=== PATIENT | female | born 1945 | race Caucasian/White ===

== ENCOUNTER 2021-11-14 22:53 | Inpatient (IN) ==
[2021-11-14] MEDS ORDERED: ONDANSETRON 4 MG/2 ML VIAL IV STA (23:58)
[2021-11-15 00:31] LABS: Albumin 3.1 G/DL (3.4-5.0); Bilirubin,Total 2.4 MG/DL (0.20-1.00); Calcium 9.5 MG/DL (8.5-10.1); Osmolality,Calculated 274.8 MOS/KG (273-304); Potassium 3.9 MMOL/L (3.5-5.1); Total Protein 6.4 G/DL (6.4-8.2)
[2021-11-15 00:56] LABS: Basophils % 0.1 % (0.0-0.8); Hematocrit 45.1 VOL% (35.7-47.0); Hemoglobin 14.3 GM/DL (12.0-16.0); Immature Granulocytes Absolute 0.24 #; Lymphocytes # 0.6 10*3/uL (1.4-4.0); Lymphocytes % 2.3 % (21.3-54.2); Mean Corpuscular HGB Conc 31.7 GM/DL (32-36); Mean Corpuscular Volume 94.5 FL (87-102); Mean Platelet Volume 11.1 FL (9.6-12.0); Monocytes % 9.1 % (1.7-12.7); Neutrophils % 87.5 % (38.7-73.9); Red Blood Count 4.77 MC/CUMM (3.8-5.5); Red Cell Distribution Width 13.6 % (9.3-17.3)
[2021-11-15 00:57] LABS: Platelet Count 61 T/CUMM (130-400); White Blood Count 24.3 T/CUMM (4-12)
[2021-11-15] MEDS ORDERED: PIPERACILLIN/TAZOBACTAM 3,375 MG in SODIUM CHLORIDE 0.9% 100 ML IV STA (01:02)
[2021-11-15 02:11] LABS: Bilirubin,Urine Negative (Negative); Blood, Urine Negative (Negative); Glucose,Urine (UA) Negative (Negative); Ketones,Urine 5 mg/dL (Negative); Mucus,Urine Occasional /LPF (Occasional); Nitrite,Urine Negative (Negative); Protein,Urine Negative; RBC,Urine 1 /HPF (0-4); Squamous Epithelial Cell,Urine Occasional /HPF (0-10); Urine Appearance CLEAR (Clear); Urine Color Amber (Yellow); Urine Specific Gravity 1.017 (1.001-1.035)
[2021-11-15 02:59] LABS: Band Neutrophils 4 % (0-10); Lymphocytes 3 % (20-55); Metamyelocytes 1 %; Segmented Neutrophils 82 % (50-85)
[2021-11-15 03:01] LABS: Howell-Jolly Bodies Few; Platelet Estimate Decreased; Total Cells Counted 100
[2021-11-15] MEDS ORDERED: GLUCAGON 1 MG VIAL IM PRN (03:55)
[2021-11-15] MEDS ORDERED: hydrALAZINE 20 MG/1 ML VIAL IV PRN (03:55)
[2021-11-15] MEDS ORDERED: MORPHINE 2 MG/1 ML SYRINGE IV PRN (03:55)
[2021-11-15] MEDS ORDERED: DEXTROSE 50% 25 GM/50 ML SYRINGE IV PRN (03:55)
[2021-11-15] MEDS ORDERED: ONDANSETRON 4 MG/2 ML VIAL IV PRN (03:55)
[2021-11-15 06:12] LABS: INR 1.1; PT Patient Result 12.7 SECS (10.5-12.0); Partial Thromboplastin Time 28.8 SECS (23.8-32.1)
[2021-11-15 06:22] LABS: Bilirubin,Direct 0.36 MG/DL (0.0-0.20); Bilirubin,Indirect 2.4 MG/DL (0.0-1.0); Bilirubin,Total 2.8 MG/DL (0.20-1.00)
[2021-11-15 06:23] LABS: Albumin 2.8 G/DL (3.4-5.0); Bilirubin,Total 2.9 MG/DL (0.20-1.00); Calcium 9.5 MG/DL (8.5-10.1); Osmolality,Calculated 270.2 MOS/KG (273-304); Potassium 4.8 MMOL/L (3.5-5.1); Total Protein 6.2 G/DL (6.4-8.2)
[2021-11-15] MEDS ORDERED: ENOXAPARIN 40 MG/0.4 ML SYRINGE SUBCUT SCH (09:00)
[2021-11-15] MEDS: AZITHROMYCIN INJ 500 MG in SODIUM CHLORIDE 0.9% 250 ML IV SCH (09:52)
[2021-11-15] MEDS: PANTOPRAZOLE 40 MG TABLET PO SCH (09:52)
[2021-11-15] MEDS: PIPERACILLIN/TAZOBACTAM 3,375 MG in SODIUM CHLORIDE 0.9% 100 ML IV SCH ×2 (11:53→17:16)
[2021-11-15] MEDS: methylPREDNISolone SOD SUC 40 MG/1 ML VIAL IV SCH ×2 (11:53→20:07)
[2021-11-15 15:44] LABS: ABG Base Excess 4.2 MMOL/L (-2.5-2.5); ABG HCO3 27.8 MMOL/L (20-26); ABG Oxygen Saturation 82.4 % (95-100); ABG PCO2 54.9 MM HG (35-48); ABG PH 7.363 (7.35-7.45); ABG PO2 49.5 MM HG (80-95); ABG TCO2 27.3 MMOL/L (23-27); Allen Test Positive
[2021-11-15] MEDS: ALBUTEROL/IPRATROPIUM 3 ML NEB RESP TX SCH ×2 (15:58→20:02)
[2021-11-15] MEDS ORDERED: DIGOXIN 0.5 MG/2 ML AMP IV ONE ×2 (16:22→16:45)
[2021-11-15 17:09] LABS: Bilirubin,Urine Negative (Negative); Blood, Urine Negative (Negative); Glucose,Urine (UA) Negative (Negative); Ketones,Urine 5 mg/dL (Negative); Mucus,Urine Occasional /LPF (Occasional); Nitrite,Urine Negative (Negative); Protein,Urine Negative; RBC,Urine 1 /HPF (0-4); Squamous Epithelial Cell,Urine Occasional /HPF (0-10); Urine Appearance CLEAR (Clear); Urine Color Amber (Yellow); Urine Specific Gravity 1.023 (1.001-1.035)
[2021-11-15] MEDS: SODIUM CHLORIDE 0.9% 1,000 ML IV SCH (17:16)
[2021-11-15] MEDS: BUDESONIDE 0.5 MG/2 ML NEB RESP TX SCH (20:02)
[2021-11-15] MEDS: ENOXAPARIN 40 MG/0.4 ML SYRINGE SUBCUT SCH (21:02)
[2021-11-16] MEDS: PIPERACILLIN/TAZOBACTAM 3,375 MG in SODIUM CHLORIDE 0.9% 100 ML IV SCH ×3 (00:25→16:29)
[2021-11-16] MEDS: methylPREDNISolone SOD SUC 40 MG/1 ML VIAL IV SCH ×3 (03:05→20:27)
[2021-11-16 04:27] LABS: Basophils % 0.1 % (0.0-0.8); Hematocrit 40.2 VOL% (35.7-47.0); Hemoglobin 12.7 GM/DL (12.0-16.0); Lymphocytes # 0.4 10*3/uL (1.4-4.0); Lymphocytes % 1.4 % (21.3-54.2); Mean Corpuscular HGB Conc 31.6 GM/DL (32-36); Mean Corpuscular Volume 96.2 FL (87-102); Mean Platelet Volume 9.9 FL (9.6-12.0); Monocytes % 1.8 % (1.7-12.7); Neutrophils % 95.4 % (38.7-73.9); Platelet Count 156 T/CUMM (130-400); Red Blood Count 4.18 MC/CUMM (3.8-5.5); Red Cell Distribution Width 13.6 % (9.3-17.3); White Blood Count 26.3 T/CUMM (4-12)
[2021-11-16 04:48] LABS: Lymphocytes 2 % (20-55); Platelet Estimate Adequate; Segmented Neutrophils 96 % (50-85)
[2021-11-16 05:00] LABS: Calcium 8.7 MG/DL (8.5-10.1); Potassium 3.9 MMOL/L (3.5-5.1)
[2021-11-16 05:12] LABS: ABG Base Excess 2.6 MMOL/L (-2.5-2.5); ABG Oxygen Saturation 97.2 % (95-100); ABG PCO2 51.9 MM HG (35-48); ABG PH 7.365 (7.35-7.45); ABG PO2 97.6 MM HG (80-95); ABG TCO2 30.6 MMOL/L (23-27)
[2021-11-16] MEDS: SODIUM CHLORIDE 0.9% 1,000 ML IV SCH ×3 (07:16→15:34)
[2021-11-16] MEDS: ACETYLCYSTEINE 20% 800 MG/4 ML VIAL RESP TX SCH ×3 (07:28→13:47)
[2021-11-16] MEDS: ALBUTEROL/IPRATROPIUM 3 ML NEB RESP TX SCH ×5 (07:28→20:07)
[2021-11-16] MEDS: BUDESONIDE 0.5 MG/2 ML NEB RESP TX SCH ×2 (07:28→20:07)
[2021-11-16] MEDS: PANTOPRAZOLE 40 MG TABLET PO SCH (08:36)
[2021-11-16] MEDS: AZITHROMYCIN INJ 500 MG in SODIUM CHLORIDE 0.9% 250 ML IV SCH (08:48)
[2021-11-16 09:51] LABS: Ferritin 346.5 ng/mL (8-252)
[2021-11-16] MEDS: OXYBUTYNIN 5 MG TABLET PO SCH (20:27)
[2021-11-16] MEDS: ATORVASTATIN 10 MG TABLET PO SCH (20:27)
[2021-11-16] MEDS: ENOXAPARIN 40 MG/0.4 ML SYRINGE SUBCUT SCH (20:27)
[2021-11-17] MEDS: PIPERACILLIN/TAZOBACTAM 3,375 MG in SODIUM CHLORIDE 0.9% 100 ML IV SCH ×3 (00:26→16:31)
[2021-11-17] MEDS: ACETYLCYSTEINE 20% 800 MG/4 ML VIAL RESP TX SCH ×3 (00:32→13:49)
[2021-11-17] MEDS: ALBUTEROL/IPRATROPIUM 3 ML NEB RESP TX SCH ×4 (00:32→20:07)
[2021-11-17] MEDS: methylPREDNISolone SOD SUC 40 MG/1 ML VIAL IV SCH ×3 (03:32→21:02)
[2021-11-17 05:27] LABS: Basophils % 0.1 % (0.0-0.8); Hematocrit 37.3 VOL% (35.7-47.0); Hemoglobin 11.9 GM/DL (12.0-16.0); Lymphocytes # 0.2 10*3/uL (1.4-4.0); Lymphocytes % 1.1 % (21.3-54.2); Mean Corpuscular HGB Conc 31.9 GM/DL (32-36); Mean Corpuscular Volume 95.6 FL (87-102); Monocytes % 2.6 % (1.7-12.7); Neutrophils % 95.1 % (38.7-73.9); Platelet Count 175 T/CUMM (130-400); Red Cell Distribution Width 13.5 % (9.3-17.3); White Blood Count 21.6 T/CUMM (4-12)
[2021-11-17 05:44] LABS: Calcium 8.4 MG/DL (8.5-10.1); Osmolality,Calculated 282.8 MOS/KG (273-304); Potassium 4.2 MMOL/L (3.5-5.1)
[2021-11-17 05:50] LABS: Hypochromia Slight; Microcytosis Slight; Platelet Estimate Adequate; Segmented Neutrophils 98 % (50-85)
[2021-11-17] MEDS: BUDESONIDE 0.5 MG/2 ML NEB RESP TX SCH ×2 (07:24→20:07)
[2021-11-17] MEDS: LOSARTAN 50 MG TABLET PO SCH (08:16)
[2021-11-17] MEDS: OXYBUTYNIN 5 MG TABLET PO SCH ×2 (08:16→21:02)
[2021-11-17] MEDS: DILTIAZEM CD 180 MG CAPSULE PO SCH (08:16)
[2021-11-17] MEDS: PANTOPRAZOLE 40 MG TABLET PO SCH (08:16)
[2021-11-17] MEDS: MONTELUKAST 10 MG TABLET PO SCH (08:16)
[2021-11-17] MEDS: SODIUM CHLORIDE 0.9% 1,000 ML IV SCH ×2 (08:16→11:11)
[2021-11-17] MEDS: AZITHROMYCIN INJ 500 MG in SODIUM CHLORIDE 0.9% 250 ML IV SCH (10:35)
[2021-11-17] MEDS: VANCOMYCIN INJ 1,000 MG in SODIUM CHLORIDE 0.9% 250 ML IV SCH (11:58)
[2021-11-17] MEDS: ATORVASTATIN 10 MG TABLET PO SCH (21:02)
[2021-11-17] MEDS: ENOXAPARIN 40 MG/0.4 ML SYRINGE SUBCUT SCH (21:03)
[2021-11-18] MEDS: VANCOMYCIN INJ 1,000 MG in SODIUM CHLORIDE 0.9% 250 ML IV SCH ×2 (00:33→12:05)
[2021-11-18] MEDS: SODIUM CHLORIDE 0.9% 1,000 ML IV SCH (00:33)
[2021-11-18] MEDS: ACETYLCYSTEINE 20% 800 MG/4 ML VIAL RESP TX SCH ×3 (00:42→15:05)
[2021-11-18] MEDS: ALBUTEROL/IPRATROPIUM 3 ML NEB RESP TX SCH ×4 (00:42→20:40)
[2021-11-18] MEDS: PIPERACILLIN/TAZOBACTAM 3,375 MG in SODIUM CHLORIDE 0.9% 100 ML IV SCH ×3 (01:52→16:40)
[2021-11-18] MEDS: methylPREDNISolone SOD SUC 40 MG/1 ML VIAL IV SCH ×3 (04:13→21:18)
[2021-11-18 05:12] LABS: Basophils % 0.1 % (0.0-0.8); Hematocrit 37.2 VOL% (35.7-47.0); Hemoglobin 11.5 GM/DL (12.0-16.0); Lymphocytes # 0.5 10*3/uL (1.4-4.0); Lymphocytes % 2.8 % (21.3-54.2); Mean Corpuscular HGB Conc 30.9 GM/DL (32-36); Mean Corpuscular Volume 96.6 FL (87-102); Monocytes % 7.8 % (1.7-12.7); Neutrophils % 87.9 % (38.7-73.9); Platelet Count 157 T/CUMM (130-400); Red Blood Count 3.85 MC/CUMM (3.8-5.5); Red Cell Distribution Width 13.5 % (9.3-17.3); White Blood Count 18.3 T/CUMM (4-12)
[2021-11-18 05:35] LABS: Lymphocytes 3 % (20-55); Platelet Estimate Adequate; Segmented Neutrophils 94 % (50-85)
[2021-11-18 05:36] LABS: Hypochromia 1+; Microcytosis 1+
[2021-11-18 05:38] LABS: Calcium 8.6 MG/DL (8.5-10.1); Osmolality,Calculated 291.1 MOS/KG (273-304); Potassium 3.8 MMOL/L (3.5-5.1)
[2021-11-18] MEDS: BUDESONIDE 0.5 MG/2 ML NEB RESP TX SCH ×2 (07:56→20:40)
[2021-11-18] MEDS: LOSARTAN 50 MG TABLET PO SCH (08:40)
[2021-11-18] MEDS: OXYBUTYNIN 5 MG TABLET PO SCH ×2 (08:40→21:18)
[2021-11-18] MEDS: PANTOPRAZOLE 40 MG TABLET PO SCH (08:40)
[2021-11-18] MEDS: MONTELUKAST 10 MG TABLET PO SCH (08:40)
[2021-11-18] MEDS: DILTIAZEM CD 180 MG CAPSULE PO SCH (08:40)
[2021-11-18] MEDS: AZITHROMYCIN INJ 500 MG in SODIUM CHLORIDE 0.9% 250 ML IV SCH (10:40)
[2021-11-18] MEDS: ATORVASTATIN 10 MG TABLET PO SCH (21:18)
[2021-11-18] MEDS: ENOXAPARIN 40 MG/0.4 ML SYRINGE SUBCUT SCH (21:19)
[2021-11-19] MEDS: VANCOMYCIN INJ 1,000 MG in SODIUM CHLORIDE 0.9% 250 ML IV SCH ×2 (00:39→13:35)
[2021-11-19] MEDS: ALBUTEROL/IPRATROPIUM 3 ML NEB RESP TX SCH ×4 (00:45→20:25)
[2021-11-19] MEDS: ACETYLCYSTEINE 20% 800 MG/4 ML VIAL RESP TX SCH ×3 (00:45→18:13)
[2021-11-19] MEDS: PIPERACILLIN/TAZOBACTAM 3,375 MG in SODIUM CHLORIDE 0.9% 100 ML IV SCH ×3 (01:40→18:24)
[2021-11-19] MEDS: methylPREDNISolone SOD SUC 40 MG/1 ML VIAL IV SCH ×3 (04:35→22:31)
[2021-11-19 05:30] LABS: Basophils % 0.1 % (0.0-0.8); Hematocrit 37.9 VOL% (35.7-47.0); Hemoglobin 11.8 GM/DL (12.0-16.0); Immature Granulocytes % 2.8 %; Immature Granulocytes Absolute 0.41 #; Lymphocytes # 0.3 10*3/uL (1.4-4.0); Lymphocytes % 2.2 % (21.3-54.2); Mean Corpuscular HGB Conc 31.1 GM/DL (32-36); Mean Corpuscular Volume 96.7 FL (87-102); Mean Platelet Volume 9.9 FL (9.6-12.0); Monocytes % 3.4 % (1.7-12.7); Neutrophils % 91.5 % (38.7-73.9); Platelet Count 156 T/CUMM (130-400); Red Blood Count 3.92 MC/CUMM (3.8-5.5); Red Cell Distribution Width 13.7 % (9.3-17.3); White Blood Count 14.8 T/CUMM (4-12)
[2021-11-19 05:44] LABS: Calcium 8.7 MG/DL (8.5-10.1); Osmolality,Calculated 295.6 MOS/KG (273-304)
[2021-11-19 05:54] LABS: Anisocytosis Slight; Band Neutrophils 7 % (0-10); Lymphocytes 6 % (20-55); Macrocytosis 1+; Metamyelocytes 2 %; Platelet Estimate Normal; Segmented Neutrophils 84 % (50-85); Total Cells Counted 100
[2021-11-19] MEDS: BUDESONIDE 0.5 MG/2 ML NEB RESP TX SCH ×2 (07:40→20:25)
[2021-11-19] MEDS: OXYBUTYNIN 5 MG TABLET PO SCH ×2 (09:21→22:31)
[2021-11-19] MEDS: PANTOPRAZOLE 40 MG TABLET PO SCH (09:21)
[2021-11-19] MEDS: LOSARTAN 50 MG TABLET PO SCH (09:21)
[2021-11-19] MEDS: MONTELUKAST 10 MG TABLET PO SCH (09:21)
[2021-11-19] MEDS: DILTIAZEM CD 180 MG CAPSULE PO SCH (09:21)
[2021-11-19] MEDS ORDERED: FUROSEMIDE 40 MG/4 ML VIAL IV ONE (12:19)
[2021-11-19] MEDS: SODIUM CHLORIDE 0.9% 1,000 ML IV SCH ×2 (18:23→18:25)
[2021-11-19] MEDS: FLUCONAZOLE 100 MG TABLET PO SCH (18:24)
[2021-11-19] MEDS: ATORVASTATIN 10 MG TABLET PO SCH (22:31)
[2021-11-19] MEDS: ENOXAPARIN 40 MG/0.4 ML SYRINGE SUBCUT SCH (22:32)
[2021-11-20] MEDS: ACETYLCYSTEINE 20% 800 MG/4 ML VIAL RESP TX SCH ×3 (00:40→13:27)
[2021-11-20] MEDS: ALBUTEROL/IPRATROPIUM 3 ML NEB RESP TX SCH ×4 (00:40→20:21)
[2021-11-20] MEDS: VANCOMYCIN INJ 1,000 MG in SODIUM CHLORIDE 0.9% 250 ML IV SCH ×3 (01:22→23:22)
[2021-11-20] MEDS: PIPERACILLIN/TAZOBACTAM 3,375 MG in SODIUM CHLORIDE 0.9% 100 ML IV SCH ×3 (06:09→18:15)
[2021-11-20] MEDS: methylPREDNISolone SOD SUC 40 MG/1 ML VIAL IV SCH ×2 (06:09→18:14)
[2021-11-20] MEDS: BUDESONIDE 0.5 MG/2 ML NEB RESP TX SCH ×2 (07:22→20:21)
[2021-11-20 09:36] LABS: Basophils % 0.2 % (0.0-0.8); Hematocrit 39.9 VOL% (35.7-47.0); Hemoglobin 12.6 GM/DL (12.0-16.0); Immature Granulocytes % 4.7 %; Immature Granulocytes Absolute 0.61 #; Lymphocytes # 0.5 10*3/uL (1.4-4.0); Lymphocytes % 3.5 % (21.3-54.2); Mean Corpuscular HGB Conc 31.6 GM/DL (32-36); Mean Corpuscular Volume 95.7 FL (87-102); Mean Platelet Volume 9.8 FL (9.6-12.0); Monocytes % 3.7 % (1.7-12.7); Neutrophils % 87.9 % (38.7-73.9); Platelet Count 183 T/CUMM (130-400); Red Blood Count 4.17 MC/CUMM (3.8-5.5); Red Cell Distribution Width 13.7 % (9.3-17.3)
[2021-11-20 09:49] LABS: Calcium 8.7 MG/DL (8.5-10.1); Osmolality,Calculated 297.7 MOS/KG (273-304); Potassium 3.6 MMOL/L (3.5-5.1)
[2021-11-20 09:58] LABS: Band Neutrophils 3 % (0-10); Lymphocytes 9 % (20-55); Segmented Neutrophils 82 % (50-85); Total Cells Counted 100
[2021-11-20 09:59] LABS: Anisocytosis 1+; Macrocytosis Slight; Platelet Estimate Normal
[2021-11-20] MEDS: PANTOPRAZOLE 40 MG TABLET PO SCH (10:19)
[2021-11-20] MEDS: LOSARTAN 50 MG TABLET PO SCH (10:19)
[2021-11-20] MEDS: MONTELUKAST 10 MG TABLET PO SCH (10:19)
[2021-11-20] MEDS: OXYBUTYNIN 5 MG TABLET PO SCH ×2 (10:19→21:00)
[2021-11-20] MEDS: DILTIAZEM CD 180 MG CAPSULE PO SCH (10:19)
[2021-11-20] MEDS: FLUCONAZOLE 100 MG TABLET PO SCH (10:19)
[2021-11-20] MEDS ORDERED: FUROSEMIDE 100 MG/10 ML VIAL IV ONE (11:00)
[2021-11-20] MEDS ORDERED: POTASSIUM BICARB EFFERVESCENT 20 MEQ TAB.EFF PO ONE (11:00)
[2021-11-20] MEDS: SODIUM CHLORIDE 0.9% 1,000 ML IV SCH (14:21)
[2021-11-20] MEDS ORDERED: POTASSIUM CHLORIDE 20 MEQ PACK PO ONE (19:49)
[2021-11-20] MEDS: ATORVASTATIN 10 MG TABLET PO SCH (21:00)
[2021-11-20] MEDS: ENOXAPARIN 40 MG/0.4 ML SYRINGE SUBCUT SCH (21:00)
[2021-11-20] MEDS: ACETAMINOPHEN 325 MG TABLET PO PRN (21:00)
[2021-11-21] MEDS: ALBUTEROL/IPRATROPIUM 3 ML NEB RESP TX SCH ×4 (01:13→20:35)
[2021-11-21] MEDS: ACETYLCYSTEINE 20% 800 MG/4 ML VIAL RESP TX SCH ×3 (01:13→14:02)
[2021-11-21] MEDS: PIPERACILLIN/TAZOBACTAM 3,375 MG in SODIUM CHLORIDE 0.9% 100 ML IV SCH ×3 (02:04→16:59)
[2021-11-21] MEDS: methylPREDNISolone SOD SUC 40 MG/1 ML VIAL IV SCH (05:57)
[2021-11-21] MEDS: BUDESONIDE 0.5 MG/2 ML NEB RESP TX SCH ×2 (07:30→20:35)
[2021-11-21] MEDS: OXYBUTYNIN 5 MG TABLET PO SCH ×2 (09:39→20:41)
[2021-11-21] MEDS: FUROSEMIDE 40 MG/4 ML VIAL IV SCH ×2 (09:39→15:30)
[2021-11-21] MEDS: LOSARTAN 50 MG TABLET PO SCH (09:39)
[2021-11-21] MEDS: MONTELUKAST 10 MG TABLET PO SCH (09:39)
[2021-11-21] MEDS: PANTOPRAZOLE 40 MG TABLET PO SCH (09:39)
[2021-11-21] MEDS: DILTIAZEM CD 180 MG CAPSULE PO SCH (09:39)
[2021-11-21] MEDS: FLUCONAZOLE 100 MG TABLET PO SCH (09:40)
[2021-11-21 13:40] LABS: Basophils # 0.1 10*3/uL (0.0-0.2); Basophils % 0.5 % (0.0-0.8); Hematocrit 43.3 VOL% (35.7-47.0); Hemoglobin 13.5 GM/DL (12.0-16.0); Immature Granulocytes Absolute 1.06 #; Lymphocytes # 0.7 10*3/uL (1.4-4.0); Lymphocytes % 3.8 % (21.3-54.2); Mean Corpuscular HGB Conc 31.2 GM/DL (32-36); Mean Corpuscular Volume 95.6 FL (87-102); Mean Platelet Volume 9.8 FL (9.6-12.0); Monocytes % 5.8 % (1.7-12.7); Neutrophils % 83.9 % (38.7-73.9); Platelet Count 218 T/CUMM (130-400); Red Blood Count 4.53 MC/CUMM (3.8-5.5); Red Cell Distribution Width 13.8 % (9.3-17.3); White Blood Count 17.6 T/CUMM (4-12)
[2021-11-21 13:54] LABS: Calcium 9.8 MG/DL (8.5-10.1); Osmolality,Calculated 288.3 MOS/KG (273-304); Potassium 3.7 MMOL/L (3.5-5.1)
[2021-11-21] MEDS: VANCOMYCIN INJ 1,000 MG in SODIUM CHLORIDE 0.9% 250 ML IV SCH (14:13)
[2021-11-21] MEDS: predniSONE 20 MG TABLET PO SCH (14:16)
[2021-11-21 14:29] LABS: Lymphocytes 5 % (20-55); Ovalocytes Few; Platelet Estimate Normal; Segmented Neutrophils 91 % (50-85); Total Cells Counted 100
[2021-11-21] MEDS: ATORVASTATIN 10 MG TABLET PO SCH (20:41)
[2021-11-21] MEDS: ENOXAPARIN 40 MG/0.4 ML SYRINGE SUBCUT SCH (20:42)
[2021-11-22] MEDS: ACETYLCYSTEINE 20% 800 MG/4 ML VIAL RESP TX SCH ×3 (01:08→13:00)
[2021-11-22] MEDS: ALBUTEROL/IPRATROPIUM 3 ML NEB RESP TX SCH ×4 (01:08→20:15)
[2021-11-22] MEDS: PIPERACILLIN/TAZOBACTAM 3,375 MG in SODIUM CHLORIDE 0.9% 100 ML IV SCH ×3 (01:19→17:13)
[2021-11-22 05:47] LABS: Basophils % 0.3 % (0.0-0.8); Hematocrit 36.5 VOL% (35.7-47.0); Hemoglobin 11.7 GM/DL (12.0-16.0); Immature Granulocytes % 6.5 %; Immature Granulocytes Absolute 0.76 #; Lymphocytes # 0.9 10*3/uL (1.4-4.0); Lymphocytes % 7.8 % (21.3-54.2); Mean Corpuscular HGB Conc 32.1 GM/DL (32-36); Mean Corpuscular Volume 94.6 FL (87-102); Mean Platelet Volume 9.8 FL (9.6-12.0); Monocytes % 7.7 % (1.7-12.7); Neutrophils % 77.7 % (38.7-73.9); Platelet Count 179 T/CUMM (130-400); Red Blood Count 3.86 MC/CUMM (3.8-5.5); Red Cell Distribution Width 13.4 % (9.3-17.3); White Blood Count 11.7 T/CUMM (4-12)
[2021-11-22 06:08] LABS: Calcium 9.2 MG/DL (8.5-10.1); Osmolality,Calculated 287.3 MOS/KG (273-304); Potassium 3.9 MMOL/L (3.5-5.1)
[2021-11-22] MEDS: BUDESONIDE 0.5 MG/2 ML NEB RESP TX SCH ×2 (07:00→20:15)
[2021-11-22 07:47] LABS: Lymphocytes 8 % (20-55); Platelet Estimate Normal; Segmented Neutrophils 82 % (50-85); Total Cells Counted 100
[2021-11-22] MEDS: predniSONE 20 MG TABLET PO SCH (09:42)
[2021-11-22] MEDS: PANTOPRAZOLE 40 MG TABLET PO SCH (09:42)
[2021-11-22] MEDS: DILTIAZEM CD 180 MG CAPSULE PO SCH (09:43)
[2021-11-22] MEDS: MONTELUKAST 10 MG TABLET PO SCH (09:44)
[2021-11-22] MEDS: OXYBUTYNIN 5 MG TABLET PO SCH ×2 (09:44→21:19)
[2021-11-22] MEDS: LOSARTAN 50 MG TABLET PO SCH (09:44)
[2021-11-22] MEDS: FLUCONAZOLE 100 MG TABLET PO SCH (09:44)
[2021-11-22] MEDS: FUROSEMIDE 40 MG/4 ML VIAL IV SCH ×2 (09:44→17:13)
[2021-11-22] MEDS: VANCOMYCIN INJ 1,000 MG in SODIUM CHLORIDE 0.9% 250 ML IV SCH (11:37)
[2021-11-22] MEDS: ACETAMINOPHEN 325 MG TABLET PO PRN (21:19)
[2021-11-22] MEDS: ATORVASTATIN 10 MG TABLET PO SCH (21:19)
[2021-11-22] MEDS: ENOXAPARIN 40 MG/0.4 ML SYRINGE SUBCUT SCH (21:19)
[2021-11-23] MEDS: ACETYLCYSTEINE 20% 800 MG/4 ML VIAL RESP TX SCH ×2 (01:13→07:11)
[2021-11-23] MEDS: ALBUTEROL/IPRATROPIUM 3 ML NEB RESP TX SCH ×3 (01:14→13:19)
[2021-11-23 06:19] LABS: Basophils % 0.2 % (0.0-0.8); Eosinophils % 0.2 % (0.00-10.9); Hematocrit 36.6 VOL% (35.7-47.0); Hemoglobin 11.9 GM/DL (12.0-16.0); Immature Granulocytes % 6.7 %; Immature Granulocytes Absolute 0.67 #; Lymphocytes # 1.3 10*3/uL (1.4-4.0); Mean Corpuscular HGB Conc 32.5 GM/DL (32-36); Mean Corpuscular Volume 91.7 FL (87-102); Mean Platelet Volume 9.7 FL (9.6-12.0); Monocytes % 10.1 % (1.7-12.7); Neutrophils % 69.8 % (38.7-73.9); Platelet Count 191 T/CUMM (130-400); Red Blood Count 3.99 MC/CUMM (3.8-5.5); Red Cell Distribution Width 13.4 % (9.3-17.3)
[2021-11-23 06:42] LABS: Eosinophils 1 % (0-10); Lymphocytes 10 % (20-55); Segmented Neutrophils 82 % (50-85); Total Cells Counted 100
[2021-11-23 06:43] LABS: Hypochromia Slight; Microcytosis Slight; Platelet Estimate Adequate
[2021-11-23 06:57] LABS: Calcium 9.2 MG/DL (8.5-10.1); Osmolality,Calculated 284.4 MOS/KG (273-304); Potassium 3.5 MMOL/L (3.5-5.1)
[2021-11-23] MEDS: BUDESONIDE 0.5 MG/2 ML NEB RESP TX SCH (07:11)
[2021-11-23] MEDS: FUROSEMIDE 40 MG/4 ML VIAL IV SCH (09:10)
[2021-11-23] MEDS: OXYBUTYNIN 5 MG TABLET PO SCH (09:13)
[2021-11-23] MEDS: MONTELUKAST 10 MG TABLET PO SCH (09:13)
[2021-11-23] MEDS: FLUCONAZOLE 100 MG TABLET PO SCH (09:13)
[2021-11-23] MEDS: DILTIAZEM CD 180 MG CAPSULE PO SCH (09:13)
[2021-11-23] MEDS: LOSARTAN 50 MG TABLET PO SCH (09:14)
[2021-11-23] MEDS: predniSONE 20 MG TABLET PO SCH (09:14)
[2021-11-23] MEDS: PANTOPRAZOLE 40 MG TABLET PO SCH (09:14)
[2021-11-23] MEDS: VANCOMYCIN INJ 1,000 MG in SODIUM CHLORIDE 0.9% 250 ML IV SCH (11:19)
[2021-11-23 12:15] VITALS: BP 127/74
[2021-11-23] MEDS ORDERED: LEVOFLOXACIN 750 MG TABLET PO SCH (13:00)
== END 2021-11-23 14:35 | disposition home or self-care (01) | DRG 193 ==
LOC: EDUNIT# → EDBD → N.ED 22:53 → N.EDINP 11-15 03:55 → SUATTDRO 11-15 03:55 → N.EDINP 11-15 06:32 → N.3E 11-15 06:39 → N.ICU 11-15 16:46 → N.5E 11-18 17:10
PROVIDERS: ADMIT Emergency Medicine; ATTEND Internal Medicine